=== PATIENT | male | born 1970 | race Caucasian/White ===

== ENCOUNTER 2019-12-18 09:53 | Emergency (ER) | payer OTHER ==
[2019-12-18] MEDS ORDERED: LIDOCAINE 2% INJ (20 MG/ML) 20 ML MDV INJ ONE (10:19)
--- NOTE | 2019-12-18 10:33 | RADIOLOGY REPORT (SQ) ---
EXAM DESCRIPTION: FINGER LEFT IMAGES COMPLETED DATE/TIME: 12/18/2019 10:22 am REASON FOR STUDY: crush injury COMPARISON: None. NUMBER OF VIEWS: Four views. TECHNIQUE: AP, lateral, and oblique images acquired of the left thumb. LIMITATIONS: None. FINDINGS: MINERALIZATION: Normal. BONES: Soft tissue injury and highly comminuted fracture of the distal phalanx, 1st digit. No additi onal fractures identified. SOFT TISSUES: Soft tissue defect/ laceration about the from. Linear metallic density at the hypothen ar eminence measuring 3.5 mm. OTHER: No other significant finding. IMPRESSION: 1. Soft tissue injury and highly comminuted fracture of the distal phalanx, 1st digit. 2. 3.5 mm linear metallic density overlying the hypothenar eminence compatible with foreign body. TECHNICAL DOCUMENTATION: JOB ID: [id number] 2010 [employer]- All Rights Reserved Reading location - IP/workstation name: [email or web address]
--- NOTE | 2019-12-18 13:53 | ER Document Report ---
Procedures - Laceration/Wound Repair Left thumb #1 Wound length (cm): 5 Wound's Depth, Shape: Irregular Laceration pre-procedure: Sterile PPE donned Anesthetic type: 2% Lidocaine Irrigated w/ Saline (mLs): 1,000 Wound Repaired With: Sutures Suture Size/Type: 4:0, Nylon Number of Sutures: 9 Post-procedure NV exam normal: Yes Complications: No Left thumb #2 Wound length (cm): 1 Wound's Depth, Shape: Irregular Laceration pre-procedure: Sterile PPE donned Anesthetic type: 2% Lidocaine Wound explored: Clean Wound Repaired With: Sutures Number of Sutures: 3 Post-procedure NV exam normal: Yes Complications: No
--- NOTE | 2019-12-18 14:17 | ER Document Report ---
ED General - General Chief Complaint: Hand Injury Stated Complaint: LACERATION/CRUSH INJURY,THUMB Time Seen by Provider: 12/18/19 10:01 Primary Care Provider: KULWINDER,REHAN [Primary Care Provider] - Follow up as needed Mode of Arrival: Ambulatory Information source: Patient - [facility] Notes: Patient presents with left thumb pain. He states he was using a torque wrench at work when it broke free and hit his left thumb. He now complains of severe left thumb pain. Is worse with movement and better with rest. It radiates up the left hand. It is constant and throbbing. - Related Data Allergies/Adverse Reactions: No Known Allergies Allergy (Unverified 12/18/19 10:07) Past Medical History - General Information source: Patient - Social History Smoking Status: Current Every Day Smoker Chew tobacco use (# tins/day): No Frequency of alcohol use: Occasional Drug Abuse: None Family History: Reviewed & Not Pertinent Patient has homicidal ideation: No Review of Systems - Review of Systems Constitutional: denies: Chills, Fever Cardiovascular: denies: Chest pain, Palpitations Respiratory: denies: Cough, Short of breath -: Yes All other systems reviewed and negative Physical Exam - Vital signs Vitals: Temp Pulse Resp BP Pulse Ox 98.0 F 97 18 144/91 H 98 12/18/19 10:00 12/18/19 10:00 12/18/19 10:00 12/18/19 10:00 12/18/19 10:00 Interpretation: Normal - General General appearance: Appears well, Alert - HEENT Head: Normocephalic, Atraumatic Eyes: Normal Pupils: PERRL - Respiratory Respiratory status: No respiratory distress Chest status: Nontender Breath sounds: Normal Chest palpation: Normal - Cardiovascular Rhythm: Regular Heart sounds: Normal auscultation Murmur: No - Abdominal Inspection: Normal Distension: No distension Bowel sounds: Normal Tenderness: Nontender Organomegaly: No organomegaly - Back Back: Normal, Nontender - Extremities General upper extremity: Normal color, Normal temperature, Other - Patient's left thumb has an approximately 60% circumferential laceration just distal to the IP joint. Bone is showing. He does have cap refill that is delayed about 3 to 4 seconds in the left thumb. It is slightly dusky. He has good sensation. General lower extremity: Normal inspection, Nontender, Normal color, Normal ROM, Normal temperature, Normal weight bearing. No: Caitlin's sign - Neurological Neuro grossly intact: Yes Cognition: Normal Orientation: AAOx4 Suzan Coma Scale Eye Opening: Spontaneous Suzan Coma Scale Verbal: Oriented Suzan Coma Scale Motor: Obeys Commands [place] Coma Scale Total: 15 Speech: Normal Motor strength normal: LUE, RUE, LLE, RLE Sensory: Normal - Psychological Associated symptoms: Normal affect, Normal mood - Skin Skin Temperature: Warm Skin Moisture: Dry Skin Color: Normal Course - Re-evaluation Re-evalutation: 12/18/19 14:15 Patient has a crush injury left thumb with a partial circumferential laceration. It is an open fracture. He will be given antibiotics. At this time I have had the nurse practitioner repair the wound. I have discussed the case with the hand surgeon, Dr. Downs. He states that patient should follow-up with him in the office in the morning. - Vital Signs Vital signs: Temp Pulse Resp BP Pulse Ox 98 F 97 18 144/91 H 98 12/18/19 10:11 12/18/19 10:00 12/18/19 10:00 12/18/19 10:00 12/18/19 10:00 - Diagnostic Test Radiology reviewed: Image reviewed, Reports reviewed Procedures - Immobilization Left Thumb Time completed: 14:16 Pre-Proc Neuro Vasc Exam: Abnormal - see note Immobilizer type: Finger splint (Static) Performed by: RN Post-Proc Neuro Vasc Exam: Abnormal, Unchanged from pre-exam Alignment checked and good: Yes Discharge - Discharge Clinical Impression: Thumb fracture Qualifiers: Encounter type: initial encounter Fracture type: open Phalanx: distal Fracture alignment: displaced Laterality: left Qualified Code(s): S62.522B - Displaced fracture of distal phalanx of left thumb, initial encounter for open fracture Condition: Stable Disposition: HOME, SELF-CARE Instructions: Hand Laceration ([facility]) Additional Instructions: Dr. Downs will see you in the morning first thing. Please try to arrive at his office around 9 AM. Prescriptions: Cephalexin Monohydrate [Keflex 500 mg Capsule] 500 mg PO Q6 5 Days #20 capsule Hydrocodone/Acetaminophen [[place] 5-325 mg Tablet] 1 tab PO Q6 PRN 3 Days #12 tablet PRN Reason: Forms: Return to Work Referrals: KATH DOWNS DO [ACTIVE STAFF] - 12/19/19 9:00 am
[2019-12-18] MEDS ORDERED: DIPH/PERTUSS(ACELL)/TETANUS VAC/PF 0.5 ML SYR (>=10YO) IM ONE (14:23)
[2019-12-18] MEDS ORDERED: CEFAZOLIN 1 GM/D5W RTU 1 GM/50 ML RTUPB IV SCH (14:30)
[2019-12-18] MEDS ORDERED: CEPHALEXIN 500 MG CAPSULE PO ONE (14:50)
[2019-12-18 15:04] VITALS: BP 140/60
== END 2019-12-18 14:59 | disposition home or self-care (01) ==
LOC: ER 09:53
DX: S62.522B Displaced fracture of distal phalanx of left thumb, initial encounter for open fracture (principal); F17.200 Nicotine dependence, unspecified, uncomplicated; X58.XXXA Exposure to other specified factors, initial encounter; Y99.0 Civilian activity done for income or pay
CPT/HCPCS: 99283; 73140; 12002; J3490

== ENCOUNTER 2020-02-07 06:56 | Emergency (ER) | payer OTHER ==
[2020-02-07 09:34] LABS: ABSOLUTE MONOCYTES (AUTO) 0.7 10^3/uL (0.1-1.4); ABSOLUTE NEUT (AUTO) 10.4 10^3/uL (1.7-8.2); BASOPHILS % (AUTO) 0.2 % (0-2); EOSINOPHILS % (AUTO) 0.1 % (0-6); HEMATOCRIT 42.6 % (37.9-51.0); HEMOGLOBIN 14.5 g/dL (13.5-17.0); MEAN CORPUSCULAR HEMOGLOBIN 31.8 pg (27.0-33.4); MEAN CORPUSCULAR HGB CONC 33.9 g/dL (32.0-36.0); MEAN CORPUSCULAR VOLUME 94 fl (80-97); MONOCYTES % (AUTO) 5.6 % (3-13); PLATELET COUNT 211 10^3/uL (150-450); RED BLOOD COUNT 4.54 10^6/uL (4.35-5.55); RED CELL DISTRIBUTION WIDTH 13.1 % (11.5-14.0); SEGMENTED NEUTROPHILS % (AUTO) 86.1 % (42-78); TOTAL CELLS COUNTED % (AUTO) 100 %; WHITE BLOOD COUNT 12.1 10^3/uL (4.0-10.5)
[2020-02-07 09:41] LABS: AMORPHOUS SEDIMENT,URINE TRACE /HPF; APPEARANCE,URINE CLOUDY; BILIRUBIN,URINE NEGATIVE (NEGATIVE); COLOR,URINE YELLOW; GLUCOSE, URINE NEGATIVE (NEGATIVE); KETONES,URINE 20 mg/dL (NEGATIVE); LEUKOCYTE ESTERASE,URINE NEGATIVE (NEGATIVE); NITRITE,URINE NEGATIVE (NEGATIVE); PROTEIN,URINE 100 mg/dL (NEGATIVE); URIC ACID CRYSTALS,URINE RARE /HPF; URINE SPECIFIC GRAVITY 1.023; UROBILINOGEN,URINE NEGATIVE mg/dL (<2.0)
[2020-02-07 09:52] LABS: ALBUMIN 4.5 g/dL (3.5-5.0); ALKALINE PHOSPHATASE 78 U/L (38-126); ASPARTATE AMINO TRANSFERASE 27 U/L (17-59); BILIRUBIN,TOTAL 0.3 mg/dL (0.2-1.3); BLOOD UREA NITROGEN 19 mg/dL (7-20); CALCIUM 9.9 mg/dL (8.4-10.2); CARBON DIOXIDE 28 mmol/L (22-30); CHLORIDE 106 mmol/L (98-107); GLUCOSE 120 mg/dL (75-110); POTASSIUM 4.7 mmol/L (3.6-5.0); TOTAL PROTEIN 7.2 g/dL (6.3-8.2)
[2020-02-07 09:58] LABS: ANION GAP 5 (5-19)
--- NOTE | 2020-02-07 10:07 | ER Document Report ---
ED GI/ - General Chief Complaint: Flank Pain Stated Complaint: ABDOMINAL PAIN Time Seen by Provider: 02/07/20 10:05 Primary Care Provider: REHAN MIRAMONTES [Primary Care Provider] - Follow up as needed Notes: Patient is a 49-year-old male who presents to the emergency department with a chief complaint of left flank pain that started at 610 this morning. Patient describes his pain as a sharp pain. Patient states that he has had some nausea and vomiting. States he vomited 3 times. - Related Data Allergies/Adverse Reactions: No Known Allergies Allergy (Verified 02/07/20 07:26) Past Medical History - Social History Smoking Status: Current Every Day Smoker Frequency of alcohol use: Social Drug Abuse: None Family History: Reviewed & Not Pertinent Review of Systems - Review of Systems Notes: REVIEW OF SYSTEMS: CONSTITUTIONAL : Denies recent illness. Denies recent unintentional weight loss. Denies fever, chills, or sweats. EENT: Denies eye, ear, throat, or mouth pain, discharge, or symptoms. Denies nasal or sinus congestion. CARDIOVASCULAR: Denies chest pain. RESPIRATORY: Denies shortness of breath, cough, congestion, difficulty breathing, or wheezing. GASTROINTESTINAL: Denies nausea, vomiting, and diarrhea. Denies abdominal pain. Denies constipation. GENITOURINARY: Denies difficulty urinating, burning, blood in urine, urgency or frequency. MUSCULOSKELETAL: See HPI. Denies joint pain or swelling. SKIN: Denies rash, itchiness, or lesions HEMATOLOGIC : Denies easy bruising or bleeding. LYMPHATIC: Denies swollen, painful, enlarged glands. NEUROLOGICAL: Denies no numbness or tingling denies weakness. Denies headache. Denies altered mental status. Denies alteration in speech. PSYCHIATRIC: Denies stress, anxiety, alteration in sleep patterns, or depression. All other systems reviewed and negative. Physical Exam - Vital signs Vitals: Temp Pulse Resp BP Pulse Ox 97.6 F 74 24 H 119/62 100 02/07/20 07:06 02/07/20 07:06 02/07/20 07:06 02/07/20 07:06 02/07/20 07:06 - Notes Notes: PHYSICAL EXAMINATION: GENERAL: Appears well, healthy, well-nourished, no acute distress. HEAD: Normocephalic, atraumatic. EYES: PERRL, conjunctiva normal, all extraocular movements intact, sclera nonicteric ENT: Moist mucous membranes. NECK: Supple, no noticeable swelling, redness, rash. Normal range of motion. LUNGS: Equal breath sounds bilaterally and clear to auscultation. No wheezes rales or rhonchi. CARDIOVASCULAR: S1-S2, regular rate, regular rhythm. Radial pulses 2+, normal. ABDOMEN: Normoactive bowel sounds. Soft, nontender, no guarding, no rebound tenderness, and no masses palpated. EXTREMITIES: Normal strength and range of motion, no pitting or edema. No cyanosis. NEUROLOGICAL: Moves all extremities upon command. Strength 5/5 in all extremities. PSYCH: Normal mood, normal affect. SKIN: Warm, dry. No rash, lesions, ulcerations noted. Normal skin turgor. BACK: Left CVA tenderness. Course - Re-evaluation Re-evalutation: 02/07/20 10:13 Hematology shows a leukocytosis of 12,100 with a left shift. Chemistries are unremarkable. Lipase is 329. Urinalysis shows large amount of blood in the his urine. We will send patient for CT of the abdomen pelvis to rule out kidney stone. Offered patient pain medication he refused any pain medication. Also offered him antinausea medication, and he refused. 02/07/20 10:59 Patient has left-sided hydronephrosis with a 1 cm proximal ureteral stone. I called [facility]. Left a message for the transfer center. Will await callback. 02/07/20 11:25 I called [facility] to speak with urologist geographic information system analyst. Will await callback. 02/07/20 11:[address] Evangelista, urologist at [facility]. He will be able to see the patient on an outpatient basis and plan for possible lithotripsy next week. I discussed this with the patient and he is in agreement with this plan. We will send the patient with a prescription for pain medicine. Follow-up precautions were given. Verbal discharge instructions were given to the patient. They verbalized understanding. They are stable for discharge. - Vital Signs Vital signs: Temp Pulse Resp BP Pulse Ox 97.8 F 78 18 124/70 100 02/07/20 11:54 02/07/20 11:54 02/07/20 11:54 02/07/20 11:54 02/07/20 11:54 - Laboratory Result Diagrams: 02/07/20 09:25 02/07/20 09:25 Laboratory results interpreted by me: 02/07/20 02/07/20 02/07/20 09:25 09:25 09:25 WBC 12.1 H Lymph % (Auto) 8.0 L Absolute Neuts (auto) 10.4 H Seg Neutrophils % 86.1 H Glucose 120 H Lipase 329.9 H Urine Protein 100 H Urine Ketones 20 H Urine Blood LARGE H Discharge - Discharge Clinical Impression: Kidney stone Condition: Stable Disposition: HOME, SELF-CARE Additional Instructions: You were seen today in the emergency department for flank pain. You have a 1 cm stone. Please follow-up with Dr. Evangelista in [place] today. See him this afternoon. [facility] [address], [place], [address] Prescriptions: Tamsulosin HCl [Flomax 0.4 mg Cap.sr] 0.4 mg PO DAILY #7 cap.sr.24h Hydrocodone/Acetaminophen [[place] 5-325 mg Tablet] 1 tab PO Q6 PRN #14 tablet PRN Reason: Forms: Return to Work [facility]errals: [facility] [Primary [facility]] - Follow up as needed
[2020-02-07] MEDS ORDERED: NORMAL SALINE 1000 ML 1,000 ML IV ONE (10:45)
[2020-02-07] MEDS ORDERED: TAMSULOSIN HCL 0.4 MG CAP.SR.24H PO ONE (10:45)
[2020-02-07] MEDS ORDERED: KETOROLAC TROMETHAMINE INJ/PF 30 MG/1 ML SDV IV ONE (10:45)
--- NOTE | 2020-02-07 10:45 | RADIOLOGY REPORT (SQ) ---
EXAM DESCRIPTION: CT ABD/PELVIS NO ORAL OR IV IMAGES COMPLETED DATE/TIME: 02/07/2020 10:13 am REASON FOR STUDY: left flank pain COMPARISON: None. TECHNIQUE: CT scan of the abdomen and pelvis performed without intravenous or oral contrast. Images reviewed with lung, soft tissue, and bone windows. Reconstructed coronal and sagittal MPR images revi ewed. All images stored on PACS. All CT scanners at this facility use dose modulation, iterative reconstruction, and/or weight based d osing when appropriate to reduce radiation dose to as low as reasonably achievable (ALARA). [facility]: Dose Right [facility]: CareDose [facility]: Dose Right [facility]: Teradose 4D [facility]: [employer] RADIATION DOSE: CT Rad equipment meets quality standard of care and radiation dose reduction techniq ues were employed. CTDIvol: 8.2 mGy. DLP: 466 mGy-cm.mGy. LIMITATIONS: None. FINDINGS: LOWER CHEST: No significant findings. No nodules or infiltrates. NON-CONTRASTED LIVER, SPLEEN, ADRENALS: Evaluation limited by lack of IV contrast. No identified sign ificant masses. PANCREAS: No masses. No peripancreatic inflammatory changes. GALLBLADDER: No identified stones by CT criteria. No inflammatory changes to suggest cholecystitis. RIGHT KIDNEY AND URETER: No suspicious masses. Assessment limited by lack of IV contrast. Punctate nonobstructing lower pole stones. No hydronephrosis or hydroureter. LEFT KIDNEY AND URETER: No suspicious masses. Assessment limited by lack of IV contrast. Significan t hydronephrosis of the proximal renal collecting system with an obstructing 1.0 cm stone at the prox imal ureter (Hounsfield units greater than 1,000). There is mild associated perinephric stranding. There are additional punctate nonobstructing stones. Few interpolar cysts largest measuring 2.0 cm. AORTA AND RETROPERITONEUM: No aneurysm. No retroperitoneal masses or adenopathy. BOWEL AND PERITONEAL CAVITY: No obvious masses or inflammatory changes. No free fluid. APPENDIX: Normal. PELVIS, BLADDER, AND ABDOMINAL WALL:None decompressed urinary bladder. Prostatomegaly measuring 5.0 cm transversely. Evidence of prior vasectomy. BONES: No acute bony abnormality. No suspicious lytic or blastic osseous lesions. Mild grade 1 retr olisthesis of L5 on S1. OTHER: No other significant finding. IMPRESSION: 1. Significant left-sided hydronephrosis secondary to a 1.0 cm proximal ureteral stone. 2. Additional punctate bilateral nonobstructing stones. COMMENT: Quality ID # [id number]: Final reports with documentation of one or more dose reduction techniques (e.g., Automated exposure control, adjustment of the mA and/or kV according to patient size, use of iterative reconstruction technique) TECHNICAL DOCUMENTATION: JOB ID: [id number] 2010 [employer]- All Rights Reserved Reading location - IP/workstation name: [email or web address]
[2020-02-07] MEDS ORDERED: ONDANSETRON HCL INJ/PF 4 MG/2 ML SDV IV ONE (10:53)
[2020-02-07 11:55] VITALS: BP 124/70
== END 2020-02-07 11:55 | disposition home or self-care (01) ==
LOC: ER 06:56
DX: N20.0 Calculus of kidney (principal); R10.9 Unspecified abdominal pain; R11.2 Nausea with vomiting, unspecified; F17.200 Nicotine dependence, unspecified, uncomplicated
CPT/HCPCS: 36415; 74176; 80053; 81001; 83690; 85025; 99284